=== PATIENT | female | born 1955 | race Caucasian/White ===

== ENCOUNTER 2016-11-24 17:24 | Emergency (ER) | payer OTHER ==
[~2016-11-24] VITALS: Ht 167.6 cm; Wt 81.6 kg
[2016-11-24 17:28] VITALS: TEMP 36.9; Ht 167.6 cm; Wt 81.6 kg
--- NOTE | 2016-11-24 17:58 | EMERGENCY ROOM VISIT NOTE ---
History Report prepared by Mary: Darin Crandall Under the Supervision of: Dr. Emiliano Esteban M.D. First contact with patient: 17:33 Chief Complaint: MENTAL HEALTH EVALUATION Stated Complaint: MENTAL HEALTH EVALUATION History of Present Illness The patient is a 61 year old female who presents to the Emergency Room with complaints of worsening depression that began a couple of months ago. She states that she has been drinking alcohol frequently. The patient states that she drinks about a pint to half a pint of vodka a day. She states that she typically drinks in the mornings. She states that she has been to three rehabs in six months. The patient reports that she was recently at [facility] last night and was given medication for withdrawal. The patient states that she is not happy with life. She reports that she made a threat to end her life, but does not remember this due to her intoxication. The patient states that her family is big and "out of control". She states that they were worried about her and called 911 cause they were worried about her. She states that she recently was put on medication for depression a week ago. The patient admits that she tried to hang herself in September and use car exhaust with suicidal intentions in the past. The patient denies having any medical problems. Source of History: patient Onset: a couple of months ago Position: other (global) Quality: other (depression) Timing: worsening Modifying Factors (Worsening): other (drinking alcohol) Review of Systems See HPI for pertinent positives & negatives. A total of 10 systems reviewed and were otherwise negative. Past Medical & Surgical Medical Problems: (1) Depression Family History Patient reports no known family medical history. Social History Smoking Status: Current Every Day Smoker Housing Status: lives with family Current/Historical Medications Scheduled Amlodipine (Norvasc), 10 MG PO DAILY Aspirin (Aspirin Ec), 81 MG PO DAILY Atorvastatin (Lipitor), 10 MG PO HS Furosemide (Lasix), 20 MG PO DAILY Gabapentin (Neurontin), 300 MG PO TID Naltrexone Hcl (Naltrexone Hcl), 50 MG PO QAM Nicotine (Nicotine), 1 PATCH TOP DAILY Propranolol (Inderal), 40 MG PO BID Venlafaxine Hcl (Effexor Xr), 150 MG PO QAM Allergies Coded Allergies: No Known Allergies (Unverified , 11/24/16) Physical Exam Vital Signs Date Time Temp Pulse Resp B/P (MAP) Pulse Ox O2 Delivery O2 Flow Rate FiO2 11/24/16 20:38 65 18 120/68 95 11/24/16 19:00 68 18 117/73 94 Room Air 11/24/16 17:28 36.9 84 16 107/76 93 Room Air Physical Exam GENERAL: Patient is a healthy-appearing well-nourished 61 year old female. HEAD: Normocephalic atraumatic EYES: Ocular movements intact pupils equal and react to light OROPHARYNX mucous membranes are moist no exudates present no erythema or edema present NECK: Supple no nuchal rigidity CHEST: Good equal expansion LUNGS: Clear and equal to auscultation CARDIAC: Normal S1 and S2 ABDOMEN: Soft nontender no guarding BACK: No CVA tenderness EXTREMITIES: No pain upon palpation normal muscle strength in all groups no clubbing cyanosis or edema NEURO: Patient is following commands and answering questions appropriately. Alert and oriented x3 Cranial Nerves 2-12 grossly intact Medical Decision & Procedures Laboratory Results 11/24/16 18:06 Red Blood Count 5.24, Mean Corpuscular Volume 93.3, Mean Corpuscular Hemoglobin 30.2, Mean Corpuscular Hemoglobin Concent 32.3, Mean Platelet Volume 11.1, Neutrophils (%) (Auto) 45.4, Lymphocytes (%) (Auto) 40.4, Monocytes (%) (Auto) 9.6, Eosinophils (%) (Auto) 3.7, Basophils (%) (Auto) 0.4, Neutrophils # (Auto) 5.29, Lymphocytes # (Auto) 4.71, Monocytes # (Auto) 1.12, Eosinophils # (Auto) 0.43, Basophils # (Auto) 0.05 11/24/16 18:06 Test 11/24/16 18:00 11/24/16 18:06 11/24/16 18:11 Urine Color DK YELLOW Urine Appearance CLOUDY (CLEAR) Urine pH 6.0 (4.5-7.5) Urine Specific [place] 1.023 (1.000-1.030) Urine Protein NEG (NEG) Urine Glucose (UA) NEG (NEG) Urine Ketones NEG (NEG) Urine Occult Blood NEG (NEG) Urine Nitrite NEG (NEG) Urine Bilirubin NEG (NEG) Urine Urobilinogen NEG (NEG) Urine Leukocyte Esterase SMALL (NEG) Urine WBC (Auto) 5-10 /hpf (0-5) Urine RBC (Auto) 0-4 /hpf (0-4) Urine Hyaline Casts (Auto) 1-5 /lpf (0-5) Urine Epithelial Cells (Auto) >30 /lpf (0-5) Urine Bacteria (Auto) NEG (NEG) Urine Yeast (Auto) BUDDING (NONE PRSENT) Urine Opiates Screen NEG (NEG) Urine Methadone, Qualitative NEG (NEG) Urine Barbiturates NEG (NEG) Urine Phencyclidine (PCP) Level NEG (NEG) Ur Amphetamine/Methamphetamine NEG (NEG) MDMA (Ecstasy) Screen NEG (NEG) Urine Benzodiazepines Screen POS (NEG) Urine Cocaine Metabolite NEG (NEG) Urine Marijuana (THC) NEG (NEG) White Blood Count 11.66 K/uL (4.8-10.8) Red Blood Count 5.24 M/uL (4.2-5.4) Hemoglobin 15.8 g/dL (12.0-16.0) Hematocrit 48.9 % (37-47) Mean Corpuscular Volume 93.3 fL (80-100) Mean Corpuscular Hemoglobin 30.2 pg (25-34) Mean Corpuscular Hemoglobin Concent 32.3 g/dl (32-36) Platelet Count 291 K/uL (130-400) Mean Platelet Volume 11.1 fL (7.4-10.4) Neutrophils (%) (Auto) 45.4 % Lymphocytes (%) (Auto) 40.4 % Monocytes (%) (Auto) 9.6 % Eosinophils (%) (Auto) 3.7 % Basophils (%) (Auto) 0.4 % Neutrophils # (Auto) 5.29 K/uL (1.4-6.5) Lymphocytes # (Auto) 4.71 K/uL (1.2-3.4) Monocytes # (Auto) 1.12 K/uL (0.11-0.59) Eosinophils # (Auto) 0.43 K/uL (0-0.5) Basophils # (Auto) 0.05 K/uL (0-0.2) RDW Standard Deviation 57.6 fL (36.4-46.3) RDW Coefficient of Variation 16.8 % (11.5-14.5) Immature Granulocyte % (Auto) 0.5 % Immature Granulocyte # (Auto) 0.06 K/uL (0.00-0.02) Anion Gap 7.0 mmol/L (3-11) Est Creatinine Clear Calc Drug Dose 78.6 ml/min Estimated GFR () 89.5 Estimated GFR (Non- 77.2 BUN/Creatinine Ratio 13.0 (10-20) Calcium Level 9.3 mg/dl (8.5-10.1) Total Bilirubin 0.3 mg/dl (0.2-1) Direct Bilirubin < 0.1 mg/dl (0-0.2) Aspartate Amino Transf (AST/SGOT) 22 U/L (15-37) Alanine Aminotransferase (ALT/SGPT) 25 U/L (12-78) Alkaline Phosphatase 88 U/L (45-117) Total Protein 6.6 gm/dl (6.4-8.2) Albumin 3.2 gm/dl (3.4-5.0) Thyroid Stimulating Hormone (TSH) 0.716 uIu/ml (0.300-4.500) Ethyl Alcohol mg/dL < 3.0 mg/dl (0-3) Bedside Glucose 144 mg/dl (70-90) Labs reviewed by ED physician. Medications Administered Medications (Trade) Dose Ordered Sig/Zeke Route Start Time Stop Time Status Last Admin Dose Admin Gabapentin (Neurontin Cap) 300 mg TID PO 11/24/16 21:00 11/24/16 21:01 DC 11/24/16 20:32 300 MG Venlafaxine HCl (effeXOR EXTENDED REL CAP) 150 mg QAM PO 11/25/16 09:00 11/25/16 09:00 DC 11/24/16 20:32 150 MG Trimethoprim/ Sulfamethoxazole (Septra Ds 800/ 160MG Tab) 1 tab NOW STAT PO 11/24/16 18:43 11/24/16 18:44 DC 11/24/16 19:00 1 TAB ED Course 1737: Past medical records reviewed. The patient was evaluated in room A06. A complete history and physical examination was performed. 1842: Ordered Trimethoprim/Sulfamethoxazole 1 tab PO. 2038: Upon reexamination the patient is doing well. I discussed results and treatment plan with the patient. She verbalizes agreement and understanding. The patient is ready for discharge. 2100: Ordered Gabapentin 300 mg PO. 00: Ordered Venlafaxine HCl 150 mg PO. Medical Decision The differential diagnosis includes etiologies such as mood disorder, infection , hypoglycemia, electrolyte abnormalities, cardiac sources, intracerebral event , toxicologic, neurologic, as well as others were entertained. This is a 61-year-old female who presents emergency department over concerns that she made suicidal statements to her counselors at [facility]. The patient reports that she made the statements when she was intoxicated. She reports that she is no longer intoxicated and is not suicidal. This was discussed with [facility] and they are unwilling to fill out a 302 petition at this point. As the patient does not wish to be admitted I have nothing to keep the patient here. The patient was medically cleared by me and was also evaluated by case management. I do feel that she is well enough to be discharged back to [facility] however they are going to institute suicide checks on the patient. Patient was in agreement with the treatment plan. Medication Reconcilliation Current Medication List: was personally reviewed by me Blood Pressure Screening Patient's blood pressure: Normal blood pressure Impression Primary Impression: Mood disorder Scribe Attestation The scribe's documentation has been prepared under my direction and personally reviewed by me in its entirety. I confirm that the note above accurately reflects all work, treatment, procedures, and medical decision making performed by me. Departure Information Dispostion Home / Self-Care Referrals No Doctor, Assigned (PCP) Forms HOME CARE DOCUMENTATION FORM, IMPORTANT VISIT INFORMATION Patient Instructions My [facility] Additional Instructions Return if symptoms worsen You have been examined and treated today on an emergency basis only. This is not a substitute for, or an effort to provide, complete comprehensive medical care. It is impossible to recognize and treat all injuries or illnesses in a single emergency department visit. It is therefore important that you follow up closely with Dr Hickman. Call as soon as possible for an appointment. Thank you for your time and consideration. I look forward to speaking with you again soon. Please don't hesitate to call us if you have any questions.
[2016-11-24 18:19] LABS: URINE APPEARANCE CLOUDY (CLEAR); URINE BILIRUBIN NEG (NEG); URINE COLOR DK YELLOW; URINE EPITHELIAL CELL AUTO >30 /lpf (0-5); URINE NITRITE NEG (NEG); URINE SPECIFIC GRAVITY 1.023 (1.000-1.030); UROBILINOGEN NEG (NEG)
[2016-11-24 18:25] LABS: MANUAL MICROSCOPIC REQUIRED? NO; REVIEW REQ? YES
[2016-11-24 18:26] LABS: BASO % 0.4 %; BASO ABS # 0.05 K/uL (0-0.2); COMPLETE YES; EOS % 3.7 %; HEMATOCRIT 48.9 % (37-47); IG% 0.5 %; LYMPH % 40.4 %; LYMPH ABS # 4.71 K/uL (1.2-3.4); MEAN CELL VOLUME 93.3 fL (80-100); MEAN CORPUSCULAR HEMOGLOBIN 30.2 pg (25-34); MEAN CORPUSCULAR HGB CONC 32.3 g/dl (32-36); MEAN PLATELET VOLUME 11.1 fL (7.4-10.4); MONO % 9.6 %; NEUT % 45.4 %; PLATELET COUNT 291 K/uL (130-400); RED BLOOD COUNT 5.24 M/uL (4.2-5.4); WHITE BLOOD COUNT 11.66 K/uL (4.8-10.8)
[2016-11-24 18:38] LABS: BENZODIAZEPINE, URINE POS (NEG); COCAINE,URINE NEG (NEG); PHENCYCLIDINE, URINE NEG (NEG)
[2016-11-24] MEDS ORDERED: PROP20TA67 PO (18:42)
[2016-11-24] MEDS ORDERED: ATOR10TA88 PO (18:42)
[2016-11-24] MEDS ORDERED: GABA-113 PO (18:42)
[2016-11-24] MEDS ORDERED: VENL150C PO (18:42)
[2016-11-24] MEDS ORDERED: NALT50TA5 PO (18:42)
[2016-11-24] MEDS ORDERED: NICO14DI9 TOP (18:42)
[2016-11-24] MEDS ORDERED: ASPI81TA28 PO (18:42)
[2016-11-24] MEDS ORDERED: FURO-85 PO (18:42)
[2016-11-24] MEDS ORDERED: AMLO-114 PO (18:42)
[2016-11-24] MEDS ORDERED: SULFAMETHOXAZOLE/TRIMETHOPRIM DS 800/160MG TAB PO STA (18:43)
[2016-11-24 18:44] LABS: ALT/SGPT 25 U/L (12-78); BLOOD UREA NITROGEN 11 mg/dl (7-18); CALCIUM 9.3 mg/dl (8.5-10.1); CARBON DIOXIDE 27 mmol/L (21-32); CHLORIDE 105 mmol/L (98-107); CREATININE 0.83 mg/dl (0.60-1.20); GLUCOSE 135 mg/dl (70-99); POTASSIUM 3.7 mmol/L (3.5-5.1); SODIUM 139 mmol/L (136-145)
[2016-11-24 18:55] LABS: ALKALINE PHOSPHATASE 88 U/L (45-117); AST/SGOT 22 U/L (15-37); THYROID STIMULATING HORMONE 0.716 uIu/ml (0.300-4.500)
[2016-11-24 20:38] VITALS: BP 120/68; PULSE 65; O2SAT 95
[2016-11-24] MEDS ORDERED: GABAPENTIN 300 MG CAP PO SCH (21:00)
[2016-11-25] MEDS ORDERED: VENLAFAXINE HCL XR 150 MG CAPXR PO SCH (09:00)
[2016-11-27 23:50] LABS: HYDROXYETHYLFLURAZEPAM CONF NEGATIVE NG/ML (CUTOFF=50); HYDROXYMIDAZOLAM NEGATIVE NG/ML (CUTOFF=50); HYDROXYTRIAZOLAM CONF NEGATIVE NG/ML (CUTOFF=50); TEMAZEPAM CONF 367 NG/ML (CUTOFF=50)
== END 2016-11-24 20:39 | disposition home or self-care (01) ==
LOC: C.EDB 17:28 → C.EDA 20:39
DX: F39 Unspecified mood [affective] disorder (principal); F17.200 Nicotine dependence, unspecified, uncomplicated; Z91.5 Personal history of self-harm; Z79.82 Long term (current) use of aspirin; Z79.899 Other long term (current) drug therapy